=== PATIENT | female | born 1950 | race Caucasian/White ===

== ENCOUNTER → 2019-09-26 18:00 | Outpatient (CLI) | payer OTHER, SELFPAY ==
--- NOTE | 2019-09-26 18:05 | DI.MRI.S_ITS ---
PROCEDURE: MR WRIST RT WO CON INDICATIONS: Sprain of carpal joint of right wrist TECHNIQUE: Noncontrast coronal proton density fast spin echo and T2 fast spin echo with fat saturation; coronal 3-D gradient echo, axial T1 spin echo and T2 fast spin echo with fat saturation, sagittal T1 spin echo through the wrist. COMPARISON: None. FINDINGS: Image quality: Excellent. Bones and cartilage: Fracture of the distal ulna is noted, mildly displaced. There is associated marrow and adjacent soft tissue edema Additional marrow edema and T2 hyperintensity present within the capitate where there is a suspected nondisplaced fracture line seen on image 9/3. Small focus of marrow edema less than 5 mm seen in the proximal lunate which could represent acute marrow contusion. Carpal ligaments: The scapholunate and lunotriquetral ligaments appear intact. In the absence of intra-articular contrast, the extrinsic carpal ligaments are not well identified. On sagittal images, the pisohamate ligament appears intact. Triangular fibrocartilage complex: The triangular fibrocartilage appears intact. The adjacent meniscal homolog appears normal in the absence of intra-articular contrast. The extensor carpi ulnaris tendon is normal in location and morphology. Tendons and soft tissues: There is possible mild flexor pollicis longus tenosynovitis although quite subtle recommend clinical correlation. Otherwise a carpal tunnel structures appear normal, including the median nerve. The ulnar nerve appears normal within Guyon's canal. There is extensor digitorum tenosynovitis and dorsal soft tissue edema. Severe strain/partial tear of the pronator quadratus. Distal radioulnar joint effusion noted. IMPRESSION: Mildly displaced fracture of the distal ulna, with associated marrow and soft tissue edema. Additional suspected fracture or marrow contusion of the capitate. Recommend further evaluation with radiographs. Marrow edema at the proximal surface of the lunate suggestive of additional small marrow contusion Severe strain/partial tear of the pronator quadratus muscle. Distal radioulnar joint effusion Extensor digitorum tenosynovitis. Subtle flexor pollicis longus tenosynovitis. Dictated by: Jaswinder Holly M.D. on 09/27/2019 at 9:47 Approved by: Jaswinder Holly M.D. on 09/27/2019 at 9:56
== END ==
PROVIDERS: Referring Provider Orthopaedic Surgery Sports Medicine; Visit Provider Orthopaedic Surgery Sports Medicine
DX: S63.511A Sprain of carpal joint of right wrist, initial encounter (principal); S52.601A Unspecified fracture of lower end of right ulna, initial encounter for closed fracture; M65.831 Other synovitis and tenosynovitis, right forearm; M25.431 Effusion, right wrist; X58.XXXA Exposure to other specified factors, initial encounter
CPT/HCPCS: 73221

== ENCOUNTER → 2023-03-21 09:44 | Outpatient (CLI) | payer OTHER, SELFPAY ==
--- NOTE | 2023-03-21 | DI.NM.S_ITS ---
PROCEDURE: NM CODI PERF SPECT REST & STR Rest and exercise myocardial perfusion SPECT with gated imaging and ejection fraction RADIOPHARMACEUTICAL: 12.2 mCi Tc-99m sestamibi IV at rest and 27 mCi Tc-99m sestamibi IV at peak exercise. A one day-protocol was performed. INDICATIONS: CHEST PAIN TECHNIQUE: Radiopharmaceutical was injected at peak stress test, and also at rest. SPECT images were obtained. SPECT myocardial perfusion images were displayed in short axis, horizontal long axis, and vertical long axis views. Gated images were reviewed using [employer] software. COMPARISON: None. CARDIAC STRESS: A standard Roberto treadmill exercise tolerance test was performed by the patient under the supervision of an attending staff. The patient exercised for 5 minutes and 1 seconds; functional aerobic impairment (BRIE) is +8%. Hemodynamic data: There is normal blood pressure and heart rate response to exercise stress. Patient achieved 88% of maximum predicted heart rate at peak exercise. Symptoms: Patient denied chest pain during exercise. EKG: No diagnostic EKG changes of ischemia; no ectopy. FINDINGS: Raw data: There is good myocardial labeling by radiotracer. No significant motion artifacts. Ylnb-ls-iqbbm ratio is 0.29 (normal is less than 0.38 for sestamibi tracer, and less than 0.50 for thallium tracer). Left ventricle function: Gated images demonstrate normal left ventricle wall thickening. No segmental wall motion abnormality. No transient ischemic dilation; TID is 0.68 (normal less than 1.3). The left ventricle resting end-diastolic volume is 88mL. Left ventricle stress ejection fraction is 82%; normal values are above 45%. Myocardial perfusion: There is normal distribution of activity in the left and right ventricular myocardium. No fixed or reversible perfusion defects. IMPRESSION: Low risk, normal treadmill nuclear stress test from inducible ischemia standpoint. 1) No perfusion evidence of ischemia or infarction. 2) Normal left ventricular size, wall motion, and systolic function (EF post stress 82%). 3) No ST changes during exercise or recovery. 4) No angina during the study. 5) Mildly reduced exercise tolerance (7.0METs, BRIE +8%). Target heart rate achieved. Appropriate BP response to exercise. 6) No prior nuclear stress test available for comparison. Dictated by: Perfecto Montiel MD on 03/21/2023 at 17:05 Approved by: Perfecto Montiel MD on 03/21/2023 at 17:08
== END ==
PROVIDERS: PCP Physician Assistant Medical; Referring Provider Physician Assistant Medical; Visit Provider Physician Assistant Medical
DX: R07.9 Chest pain, unspecified (principal)
CPT/HCPCS: 78452; 93017; A9502